=== PATIENT | male | born 1980 | race Caucasian/White ===

== ENCOUNTER 2016-09-13 20:13 | Inpatient (IN) | payer BC ==
[~2016-09-13] VITALS: Ht 190.5 cm; Wt 86.2 kg
[2016-09-13] MEDS ORDERED: HIV MEDS (20:37)
[2016-09-13] MEDS ORDERED: SERTRALINE HCL100 MG PO (20:37)
[2016-09-13 20:47] VITALS: BP 104/62
--- NOTE | 2016-09-13 20:56 | Emergency Room Report ---
History of Present Illness General Chief Complaint: Generalized Weakness Source: Patient (Henry Handley) Present Illness HPI Patient is a 35-year-old male who presented after increased generalized weakness as well as low blood pressure. Patient had prior history of similar symptoms while in diarrhea. Patient was having multiple episodes of watery diarrhea. Patient states he is also coming down from crystal meth use. Patient states that he had not been eating for several days. Patient hasn't had fever. (Henry Handley) Allergies: Coded Allergies: AMOXICILLIN (Verified Allergy, Unknown, 09/13/16) CEFTRIAXONE (Verified Allergy, Unknown, 09/13/16) PENICILLINS (Verified Allergy, Unknown, 09/13/16) Patient History Reviewed Nursing Documentation: PMH: Agreed, PSxH: Agreed (Henry Handley) Nursing Documentation-PMH History Of Psychiatric Problem: Yes - ANXIETY,DEPRESSION (Henry Handley) Review of Systems All Other Systems: negative except mentioned in HPI (Henry Handley) Physical Exam Vital Signs Date Time Temp Pulse Resp B/P Pulse Ox O2 Delivery O2 Flow Rate FiO2 09/13/16 20:30 98.2 94 18 87/60 100 Room Air Sp02 EP Interpretation: reviewed, normal General Appearance: normal inspection, well appearing, alert, mild distress Head: atraumatic ENT: normal ENT inspection, hearing grossly normal, normal voice, dry mucus membranes Neck: normal inspection, full range of motion, supple, no bony tend Respiratory: normal inspection, lungs clear, normal breath sounds, no respiratory distress, no retraction, no wheezing Cardiovascular #1: regular rate, rhythm, no edema Gastrointestinal: normal inspection, non tender, soft, no guarding, no hernia Genitourinary: no CVA tenderness Musculoskeletal: normal inspection, back normal, normal range of motion Neurologic: normal inspection, alert, oriented x3, responsive, 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 Differential diagnosis included was not limited to anemia, urinary tract infection, electrolyte abnormality, hypothyroidism, myocardial infarction, myasthenia gravis, dehydration, among others. Because of complexity of patient's case laboratory testing and imaging studies were ordered. The patient was noted to have a low blood pressure. As the likely due to dehydration from recent diarrheal episodes. The laboratory testing was ordered is currently pending the patient started IV fluids as well as IV antiemetics. CT of the abdomen pelvis is ordered. Patient noted have some elevation of his BUN/creatinine consistent with dehydration.The patient was also noted to have elevated white blood count which may be due to the patient recent methamphetamine use. Patient was noted to have some prior history of HIV Medication Laboratory Tests Test 09/13/16 21:20 White Blood Count 18.9 K/UL (4.8-10.8) H Red Blood Count 5.55 M/UL (4.70-6.10) Hemoglobin 17.5 G/DL (14.2-18.0) Hematocrit 50.5 % (42.0-52.0) Mean Corpuscular Volume 91 FL (80-99) Mean Corpuscular Hemoglobin 31.5 PG (27.0-31.0) H Mean Corpuscular Hemoglobin Concent 34.6 G/DL (32.0-36.0) Red Cell Distribution Width 10.5 % (11.6-14.8) L Platelet Count 150 K/UL (150-450) Mean Platelet Volume 8.1 FL (6.5-10.1) Neutrophils (%) (Auto) 69.8 % (45.0-75.0) Lymphocytes (%) (Auto) 17.2 % (20.0-45.0) L Monocytes (%) (Auto) 12.2 % (1.0-10.0) H Eosinophils (%) (Auto) 0.0 % (0.0-3.0) Basophils (%) (Auto) 0.7 % (0.0-2.0) Sodium Level 129 mEQ/L (135-145) L Potassium Level 3.7 mEQ/L (3.4-4.9) Chloride Level 86 mEQ/L (98-107) L Carbon Dioxide Level 20 mEQ/L (20-30) Anion Gap 23 (5-15) H Blood Urea Nitrogen 20 mg/dL (7-23) Creatinine 1.7 mg/dL (0.7-1.2) H Estimate Glomerular Filtration Rate 46.6 mL/min (>60) Glucose Level 122 mg/dL (74-106) H Calcium Level 9.0 mg/dL (8.6-10.2) Total Bilirubin 1.5 mg/dL (0.0-1.2) H Direct Bilirubin Pending Aspartate Amino Transferase (AST) 20 U/L (5-40) Alanine Aminotransferase (ALT) 12 U/L (3-41) Alkaline Phosphatase 54 U/L (40-129) Troponin I < 0.30 ng/mL (<=0.30) Total Protein 7.8 g/dL (6.6-8.7) Albumin 4.5 g/dL (3.5-5.2) Globulin 3.3 g/dL Albumin/Globulin Ratio 1.3 (1.0-2.7) Lipase 24 U/L (< 60) (Henry Handley) ER Course Patient signed out to me. He has a history HIV. Compliant with his medication. He said that for the last 3 days he had profuse diarrhea. [place] weak and had near syncopal episode today. Initially was hypotensive. Now normotensive after IV fluid. He felt better now. Antibiotics given. CT scan showed colitis. Lab Results Impression labs with leukocytosis (GLENDA SALINAS M.D.) CT/MRI/US Diagnostic Results CT/MRI/US Diagnostic Results : Imaging Test Ordered: CT abdomen and pelvis Impression read by radiologist. Colitis. CT head: read by radiologist. Negative. (GLENDA SALINAS M.D.) Last Vital Signs Date Time Temp Pulse Resp B/P Pulse Ox O2 Delivery O2 Flow Rate FiO2 09/13/16 20:30 98.2 94 18 87/60 100 Room Air Status: unchanged (Henry Handley) Status: improved (GLENDA SALINAS M.D.) Disposition: ADMITTED INPATIENT Condition: Serious Henry Handlye Sep 13, 2016 20:56 GLENDA SALINAS M.D. Sep 14, 2016 00:05
[2016-09-13 21:30] LABS: MEAN CORPUSCULAR HEMOGLOBIN 31.5 PG (27.0-31.0); MEAN CORPUSCULAR HGB CONC 34.6 G/DL (32.0-36.0); MEAN CORPUSCULAR VOLUME 91 FL (80-99); MEAN PLATELET VOLUME 8.1 FL (6.5-10.1); PLATELET COUNT 150 K/UL (150-450); RED BLOOD COUNT 5.55 M/UL (4.70-6.10); RED CELL DISTRIBUTION WIDTH 10.5 % (11.6-14.8); WHITE BLOOD COUNT 18.9 K/UL (4.8-10.8)
[2016-09-13 21:37] LABS: BASOPHILS % (AUTO) 0.7 % (0.0-2.0); LYMPHOCYTES % (AUTO) 17.2 % (20.0-45.0); MONOCYTES % (AUTO) 12.2 % (1.0-10.0); NEUTROPHILS % (AUTO) 69.8 % (45.0-75.0)
[2016-09-13 21:46] LABS: TROPONIN I < 0.30 ng/mL (<=0.30)
[2016-09-13 21:47] LABS: ALBUMIN/GLOBULIN RATIO 1.3 (1.0-2.7); CREATININE 1.7 mg/dL (0.7-1.2); GLOMERULAR FILTRATION RATE 46.6 mL/min (>60); POTASSIUM 3.7 mEQ/L (3.4-4.9); TOTAL PROTEIN 7.8 g/dL (6.6-8.7)
[2016-09-13] MEDS ORDERED: Levofloxacin 500mg tab ORAL ONE (22:00)
[2016-09-13 22:05] VITALS: BP 94/55
[2016-09-13 22:10] LABS: BILIRUBIN,DIRECT 0.3 mg/dL (0.1-0.3)
[2016-09-13 22:58] VITALS: BP 98/53
[2016-09-13 23:20] VITALS: BP 99/54
[2016-09-13 23:36] LABS: APPEARANCE,URINE CLEAR; KETONES,URINE NEGATIVE (NEGATIVE); LEUKOCYTE ESTERASE ,URINE NEGATIVE (NEGATIVE); NITRITE,URINE NEGATIVE (NEGATIVE); PH,URINE 6 (4.5-8.0); UROBILINOGEN,URINE NORMAL MG/DL (0.0-1.0)
[2016-09-13 23:38] LABS: PROTEIN,URINE NEGATIVE (NEGATIVE)
[2016-09-14] VITALS (7 sets, daily range): BP systolic 92–112; BP diastolic 53–65
[2016-09-14] MEDS ORDERED: metroNIDAZOLE 500mg 100 ML IVPB ONE
[2016-09-14] MEDS ORDERED: Ciprofloxacin 500mg tab ORAL ONE
[2016-09-14] MEDS: Ciprofloxacin 500mg tab ORAL SCH ×2 (08:48→17:14)
[2016-09-14] MEDS: metroNIDAZOLE 500mg tab ORAL SCH ×3 (08:49→17:14)
[2016-09-14] MEDS: Sertraline 100mg tab ORAL SCH (08:49)
--- NOTE | 2016-09-14 10:05 | History & Physical ---
History and Physical History & Physicial HP dictated # [id number] GIOVANY MEHTA Sep 14, 2016 10:05
[2016-09-14 10:09] LABS: BASOPHILS % (AUTO) 0.5 % (0.0-2.0); EOSINOPHILS % (AUTO) 0.2 % (0.0-3.0); LYMPHOCYTES % (AUTO) 15.7 % (20.0-45.0); MEAN CORPUSCULAR HEMOGLOBIN 32.2 PG (27.0-31.0); MEAN CORPUSCULAR HGB CONC 35.5 G/DL (32.0-36.0); MEAN CORPUSCULAR VOLUME 91 FL (80-99); MEAN PLATELET VOLUME 8.2 FL (6.5-10.1); MONOCYTES % (AUTO) 12.5 % (1.0-10.0); NEUTROPHILS % (AUTO) 71.1 % (45.0-75.0); PLATELET COUNT 136 K/UL (150-450); RED BLOOD COUNT 4.77 M/UL (4.70-6.10); RED CELL DISTRIBUTION WIDTH 10.8 % (11.6-14.8); WHITE BLOOD COUNT 11.5 K/UL (4.8-10.8)
--- NOTE | 2016-09-14 10:15 | Diagnostic Imaging Report ---
Indication: PAIN Technique: Spiral acquisitions obtained through the abdomen and pelvis. No oral contrast utilized, per emergency room physician request No IV contrast utilized, due to renal sufficiency.. Multiplanar reconstructions were generated. Total dose length product 916 mGycm. CTDIvol(s) 16 mGy Comparison: None Findings: The appendix is normal. There is mild wall thickening of the descending and sigmoid colon and of the rectum. There is minimal infiltration of the pericolonic fat surrounding the descending colon. No small bowel distention. No free or loculated intraperitoneal air or fluid. Distal esophagus, stomach, duodenum are unremarkable. Lack of IV contrast assessment of solid organs. The gallbladder, bile ducts, liver, pancreas are all unremarkable. The spleen is mildly enlarged, measuring 14 cm long axis dimension. The right kidney demonstrates a 4.8 cm lower pole cyst. The left kidney demonstrates 1 cm interpolar region cyst. No renal or ureteral calculi, hydronephrosis, or hydroureter. There are a few prominent but not frankly enlarged retroperitoneal lymph nodes. No pelvic mass or adenopathy. The included lung bases are except for a small calcified granuloma at the left lung base. The bones are unremarkable. Impression: Wall thickening of the splenic flexure, descending and sigmoid colon, and of the rectum, consistent with colitis. There is also minimal infiltration of the pericolonic fat. Mild splenomegaly Bilateral renal cysts Granulomatous calcification of the left lung base This agrees with the preliminary interpretation provided overnight by [facility] teleradiology service. The CT scanner at [facility] is accredited by the [employer] and the scans are performed using protocols designed to limit radiation exposure to as low as reasonably achievable to attain images of sufficient resolution adequate for diagnostic evaluation.
[2016-09-14 10:23] LABS: ANION GAP 15 (5-15); CALCIUM 8.5 mg/dL (8.6-10.2); CARBON DIOXIDE 20 mEQ/L (20-30); CHLORIDE 104 mEQ/L (98-107); CREATININE 1.1 mg/dL (0.7-1.2); GLOMERULAR FILTRATION RATE > 60 mL/min (>60); HEMOLYSIS 16; POTASSIUM 3.9 mEQ/L (3.4-4.9); SODIUM 139 mEQ/L (135-145)
--- NOTE | 2016-09-14 16:58 | History and Physical Report ---
DATE OF ADMISSION: 09/13/2016 CHIEF COMPLAINT: Diarrhea. HISTORY OF PRESENT ILLNESS: This is a 35-year-old, pleasant white male, who used some crystal meth on Sunday and then Sunday morning four days ago. About 10 hours later, he started having diarrhea, which was watery. The next day on Sunday he went to [facility] emergency room and was hydrated and was released. He eventually went to a detox center for rehabilitation; however, they told him he is too sick to stay there, so they sent him to emergency room at [place]. He was admitted yesterday with diagnosis of gastroenteritis. He has also acute renal failure with creatinine of 1.7. He is hyponatremic with serum sodium of 129. Also, there was leukocytosis at 18,900. The patient has some nausea. He could hardly eat anything in the past few days, although he does not have much abdominal pain and he does not have much vomiting. PAST MEDICAL HISTORY: History of HIV, which the patient thinks that he got through sexual contact. History of anxiety and depression. MEDICATIONS: The patient takes HIV medication that he does not know the name of. ALLERGIES: Reported to penicillins, ceftriaxone, and amoxicillin. SOCIAL HISTORY: The patient states that he has used crystal methamphetamine only 11 times in his life. He denies tobacco abuse. He works in the healthcare industry as a director. He lives with a roommate. REVIEW OF SYSTEMS: As above. PHYSICAL EXAMINATION: GENERAL: The patient is a thin male, in no acute distress. He does feel somewhat nauseated. VITAL SIGNS: Blood pressure 94/53, pulse 68, temperature 97.9, and respiratory rate is 17. HEENT: [place] conjunctivae. Anicteric sclerae. NECK: Supple. LUNGS: Clear to auscultation. HEART: S1 and S2 without murmurs or rubs. ABDOMEN: Soft. Mildly diffusely tender. EXTREMITIES: No cyanosis or edema. LABORATORY FINDINGS: Chemistry panel shows serum sodium of 129, potassium 3.7, chloride 86, CO2 20, BUN is 20, creatinine 1.7, and blood sugar is 122. Albumin is 4.5. CBC shows WBC of 18.9, hematocrit is 50.5, hemoglobin is 17.5, and platelets 150,000. UA is negative. ASSESSMENT: This is a 35-year-old, white male with history of human immunodeficiency virus who was admitted with acute gastroenteritis. He has acute renal failure likely as a result of prerenal azotemia. Also, he has hyponatremia again with volume depletion. PLAN: The patient will be hydrated with IV normal saline. I started the patient on liquid diet. The patient will be on Flagyl and p.o. Cipro empirically. ID consultation will be obtained. The patient will be started on his HIV medications once we get the names. Reji Dai M.D. DR: BRADEN JOB#: [id number] CC:
[2016-09-15 00:15] VITALS: BP 109/62
--- NOTE | 2016-09-15 03:08 | Consultation ---
DATE OF CONSULTATION: 09/14/2016 ATTENDING PHYSICIAN: Reji Dai M.D. REASON FOR CONSULTATION: Diarrhea and HIV. HISTORY OF PRESENT ILLNESS: The patient is a 35-year-old white male admitted last night complaining of diarrhea, weakness, and decreasing blood pressure. The patient has leukocytosis of 18.9. dad acute renal failure. The patient has also HIV since 2015. PAST MEDICAL HISTORY: HIV since 2015. He is taking medications, the last free T4 is around 400. The patient has a history of substance abuse, methamphetamine and previously smoking but in the past couple of years he started to ingesting the medication. The symptoms started after the last use of methamphetamine. MEDICATIONS: Zofran, Ciprofloxacin , Flagyl, Zoloft, and sodium chloride. SOCIAL HISTORY: He is single, has a room mate. No sick contact. He does remember eating bad food. The patient is allergic to amoxicillin, penicillin, and ceftriaxone. REVIEW OF SYSTEMS: No fever. No chills. No coughing. No chest pain. No significant abdominal pain. diarrhea. PHYSICAL EXAMINATION: VITAL SIGNS: Temperature is 96.8, blood pressure 94/59, and pulse 84. The patient is afebrile since admission. HEAD AND NECK: [place] conjunctivae. No oral lesions. HEART: S1 and S2 regular. LUNGS: Clear. ABDOMEN: Soft and nontender. Bowel sounds are present. EXTREMITIES: No edema. LABORATORY DATA: Sodium 139, potassium 3.9, chloride 104, and bicarbonate 20. BUN 12 and creatinine 1.1 coming down from 1.7. WBC 11.5, hemoglobin 15.3, hematocrit 43.2, and platelets 136,000. UA was negative. CT scan of chest was negative. IMPRESSION: 1. Diarrhea may be infectious. The patient has HIV and has decreased immunity. has dehydration and acute renal failure that is improving. 2. He has hypertension. RECOMMENDATIONS: Continue Ciprofloxacin& Flagyl, will order stool culture. At the end of my exam, I thank Dr. Dai for involving me in the care of this patient. Jose Dai M.D. DR: DORIS JOB#: [id number] CC: TRISHA
[2016-09-15 03:56] VITALS: BP 102/58
[2016-09-15 08:00] VITALS: BP 101/60
[2016-09-15] MEDS: metroNIDAZOLE 500mg tab ORAL SCH ×3 (08:23→17:39)
[2016-09-15] MEDS: Sertraline 100mg tab ORAL SCH (08:23)
[2016-09-15] MEDS: Ciprofloxacin 500mg tab ORAL SCH ×2 (08:23→17:39)
--- NOTE | 2016-09-15 11:38 | Infectious Diseases Prog Note ---
Assessment/Plan Assessment/Plan antibiotics : levoquin, flagyl A 1. colitis 2. leucocytosis improving 3. HIV P 1. continue levoquin, flagyl 2. will follow up cultures Subjective Constitutional: Denies: chills, fever Respiratory: Denies: dry cough, shortness of breath Gastrointestinal/Abdominal: Reports: diarrhea, Denies: nausea, vomiting Musculoskeletal: Reports: pain - abdominal Allergies: Coded Allergies: AMOXICILLIN (Verified Allergy, Unknown, 09/13/16) CEFTRIAXONE (Verified Allergy, Unknown, 09/13/16) PENICILLINS (Verified Allergy, Unknown, 09/13/16) Objective Vital Signs Last 24 Hour Vital Signs Date Time Temp Pulse Resp B/P Pulse Ox O2 Delivery O2 Flow Rate FiO2 09/15/16 08:00 97.2 68 17 101/60 98 Room Air 09/15/16 07:43 58 09/15/16 04:00 61 09/15/16 03:56 98.2 55 20 102/58 94 Room Air 09/15/16 00:15 98.8 66 21 109/62 93 Room Air 09/15/16 00:00 77 09/14/16 20:00 69 09/14/16 20:00 97.0 67 19 110/64 99 Room Air 09/14/16 16:00 97.9 68 20 112/65 97 Room Air 09/14/16 16:00 74 09/14/16 12:00 84 09/14/16 12:00 96.8 69 17 94/59 99 Room Air Height (Feet): 6 Height (Inches): 3.00 Weight (Pounds): 190 Respiratory/Chest: lungs clear Cardiovascular: normal rate, regular rhythm, no gallop/murmur Abdomen: tender Extremities: no edema Microbiology Date/Time Source Procedure Growth Status 09/14/16 04:00 Stool Clostridium difficile Toxin Assay - Final Complete ROMULOANAMIKEL Sep 15, 2016 11:38
[2016-09-15 12:16] VITALS: BP 103/62
--- NOTE | 2016-09-15 15:09 | General Progress Note ---
Assessment/Plan Problem List: (1) HIV (human immunodeficiency virus infection) ICD Codes: Z21 - Asymptomatic human immunodeficiency virus [HIV] infection status SNOMED: 91113039 (2) Acute gastroenteritis ICD Codes: K52.9 - Noninfective gastroenteritis and colitis, unspecified SNOMED: 27247940 (3) Acute renal failure (ARF) ICD Codes: N17.9 - Acute kidney failure, unspecified SNOMED: 50927912 Qualifiers: Qualified Codes: N17.9 - Acute kidney failure, unspecified (4) Dehydration ICD Codes: E86.0 - Dehydration SNOMED: 36573768 Status Narrative renal function better diarrhea better Assessment/Plan abxs IVF advance diet follow labs Subjective Allergies: Coded Allergies: AMOXICILLIN (Verified Allergy, Unknown, 09/13/16) CEFTRIAXONE (Verified Allergy, Unknown, 09/13/16) PENICILLINS (Verified Allergy, Unknown, 09/13/16) Subjective feels better Objective Last 24 Hour Vital Signs Date Time Temp Pulse Resp B/P Pulse Ox O2 Delivery O2 Flow Rate FiO2 09/15/16 12:16 97.8 70 18 103/62 98 Room Air 09/15/16 11:45 72 09/15/16 08:00 97.2 68 17 101/60 98 Room Air 09/15/16 07:43 58 09/15/16 04:00 61 09/15/16 03:56 98.2 55 20 102/58 94 Room Air 09/15/16 00:15 98.8 66 21 109/62 93 Room Air 09/15/16 00:00 77 09/14/16 20:00 69 09/14/16 20:00 97.0 67 19 110/64 99 Room Air 09/14/16 16:00 97.9 68 20 112/65 97 Room Air 09/14/16 16:00 74 Intake and Output 09/14/16 09/15/16 19:00 07:00 Intake Total 2560 ml 2200 ml Balance 2560 ml 2200 ml Intake Oral 760 ml 550 ml IV Total 1800 ml 1650 ml # Voids 4 6 # Bowel Movements 2 Height (Feet): 6 Height (Inches): 3.00 Weight (Pounds): 190 Respiratory/Chest: lungs clear Abdomen: soft Edema: no edema noted GIOVANY Salmon Sep 15, 2016 15:09
[2016-09-15 16:00] VITALS: BP 107/71
--- NOTE | 2016-09-15 18:34 | Cardiology Report ---
APPROVED REPORT EKG Measurement Heart [id number] OK 126P60 [id number] Normal sinus rhythm Lateral infarct, age undetermined Abnormal ECG
[2016-09-15 20:00] VITALS: BP_SYST 112; BP_SYST 127; BP_DIAS 71; BP_DIAS 79
[2016-09-16] VITALS: BP 104/65
[2016-09-16 04:00] VITALS: BP 109/49
[2016-09-16 08:00] VITALS: BP 103/57
[2016-09-16] MEDS: metroNIDAZOLE 500mg tab ORAL SCH ×3 (09:05→17:35)
[2016-09-16] MEDS: Sertraline 100mg tab ORAL SCH (09:05)
[2016-09-16] MEDS: Ciprofloxacin 500mg tab ORAL SCH ×2 (09:05→17:35)
[2016-09-16] MEDS: ABACAVIR ORAL SCH (11:03)
[2016-09-16] MEDS: DOLUTEGRAVIR ORAL SCH (11:03)
[2016-09-16] MEDS: LAMIVUDINE ORAL SCH (11:03)
[2016-09-16] MEDS: [UNRECOGNIZED DRUG - MIXTURE] ORAL SCH (11:03)
--- NOTE | 2016-09-16 11:50 | General Progress Note ---
Assessment/Plan Problem List: (1) HIV (human immunodeficiency virus infection) ICD Codes: Z21 - Asymptomatic human immunodeficiency virus [HIV] infection status SNOMED: 77263770 (2) Acute gastroenteritis ICD Codes: K52.9 - Noninfective gastroenteritis and colitis, unspecified SNOMED: 73557158 (3) Acute renal failure (ARF) ICD Codes: N17.9 - Acute kidney failure, unspecified SNOMED: 82640672 Qualifiers: Qualified Codes: N17.9 - Acute kidney failure, unspecified (4) Dehydration ICD Codes: E86.0 - Dehydration SNOMED: 99023869 Assessment/Plan abxs IVF keep on full liquids follow labs Subjective Allergies: Coded Allergies: AMOXICILLIN (Verified Allergy, Unknown, 09/13/16) CEFTRIAXONE (Verified Allergy, Unknown, 09/13/16) PENICILLINS (Verified Allergy, Unknown, 09/13/16) Subjective still with liquid stools Objective Last 24 Hour Vital Signs Date Time Temp Pulse Resp B/P Pulse Ox O2 Delivery O2 Flow Rate FiO2 09/16/16 08:00 55 09/16/16 08:00 97.7 57 20 103/57 97 Room Air 09/16/16 04:00 97.9 56 20 109/49 98 09/16/16 04:00 55 09/16/16 00:00 98.1 56 20 104/65 99 Room Air 09/16/16 00:00 56 09/15/16 20:00 59 09/15/16 20:00 98.1 68 20 112/71 98 Room Air 09/15/16 16:00 98.4 63 20 107/71 97 Room Air 09/15/16 16:00 61 09/15/16 12:16 97.8 70 18 103/62 98 Room Air Intake and Output 09/15/16 09/16/16 19:00 07:00 Intake Total 2833 ml 2200 ml Output Total 740 ml Balance 2833 ml 1460 ml Intake Oral 1000 ml 600 ml IV Total 1833 ml 1600 ml Output Urine Total 740 ml # Voids 3 3 # Bowel Movements 1 Height (Feet): 6 Height (Inches): 3.00 Weight (Pounds): 190 Cardiovascular: normal rate Respiratory/Chest: lungs clear Edema: no edema noted GIOVANY Salmon Sep 16, 2016 11:50
[2016-09-16 12:00] VITALS: BP 105/63
[2016-09-16 16:00] VITALS: BP 108/76
[2016-09-16 20:00] VITALS: BP 111/61
[2016-09-17] VITALS: BP 112/63
[2016-09-17 04:00] VITALS: BP 102/69
--- NOTE | 2016-09-17 07:59 | Infectious Diseases Prog Note ---
Assessment/Plan Assessment/Plan A 1. colitis 2. leucocytosis improving 3. HIV 4. Acute renal failure, improved P 1. continue Levaquin, Flagyl 2. will follow up cultures Subjective ROS Limited/Unobtainable: No Constitutional: Reports: no symptoms Respiratory: Reports: no symptoms Cardiovascular: Reports: no symptoms Gastrointestinal/Abdominal: Reports: diarrhea, other - more formed, dark stool Genitourinary: Reports: no symptoms Neurologic: Reports: no symptoms Allergies: Coded Allergies: AMOXICILLIN (Verified Allergy, Unknown, 09/13/16) CEFTRIAXONE (Verified Allergy, Unknown, 09/13/16) PENICILLINS (Verified Allergy, Unknown, 09/13/16) Objective Vital Signs Last 24 Hour Vital Signs Date Time Temp Pulse Resp B/P Pulse Ox O2 Delivery O2 Flow Rate FiO2 09/17/16 04:00 60 09/17/16 04:00 98.2 69 16 102/69 97 Room Air 09/17/16 00:00 97.7 75 16 112/63 97 Room Air 09/17/16 00:00 58 09/16/16 20:00 98.8 64 18 111/61 98 Room Air 09/16/16 20:00 65 09/16/16 16:00 98.1 64 20 108/76 96 Room Air 09/16/16 16:00 59 09/16/16 12:00 98.1 60 20 105/63 97 Room Air 09/16/16 12:00 62 09/16/16 08:00 55 09/16/16 08:00 97.7 57 20 103/57 97 Room Air Height (Feet): 6 Height (Inches): 3.00 Weight (Pounds): 190 General Appearance: no acute distress HEENT: mucous membranes moist Respiratory/Chest: lungs clear Cardiovascular: normal rate Abdomen: soft, non tender Extremities: no edema Neurologic/Psychiatric: alert, oriented x 3, responsive Laboratory Tests Test 09/17/16 07:25 White Blood Count Pending Red Blood Count Pending Hemoglobin Pending Hematocrit Pending Mean Corpuscular Volume Pending Mean Corpuscular Hemoglobin Pending Mean Corpuscular Hemoglobin Concent Pending Red Cell Distribution Width Pending Platelet Count Pending Mean Platelet Volume Pending Neutrophils (%) (Auto) Pending Lymphocytes (%) (Auto) Pending Monocytes (%) (Auto) Pending Eosinophils (%) (Auto) Pending Basophils (%) (Auto) Pending Sodium Level Pending Potassium Level Pending Chloride Level Pending Carbon Dioxide Level Pending Blood Urea Nitrogen Pending Creatinine Pending Estimat Glomerular Filtration Rate Pending Glucose Level Pending Calcium Level Pending Current Medications Medications (Trade) Dose Ordered Sig/Akiko Route PRN Reason Start Time Stop Time Status Last Admin Dose Admin Ciprofloxacin (Cipro 500mg tab) 500 mg BID ORAL 09/14/16 09:00 09/21/16 08:59 09/16/16 17:35 Dextrose (Dextrose 50%) STAT PRN IV Hypoglycemia 09/14/16 02:45 10/14/16 02:44 Metronidazole (Flagyl) 500 mg TID ORAL 09/14/16 09:00 09/21/16 08:59 09/16/16 17:35 Ondansetron HCl (Zofran) 4 mg Q4HR PRN IVP Nausea & Vomiting 09/14/16 09:45 10/14/16 09:44 09/14/16 10:05 Patient Own Medication (Patient's Own Med) 1 ea DAILY ORAL 09/16/16 11:00 10/16/16 10:59 09/16/16 11:03 Patient Own Medication (Patient's Own Med) 1 ea DAILY ORAL 09/16/16 11:00 10/16/16 10:59 09/16/16 11:03 Sertraline HCl (Zoloft) 100 mg DAILY ORAL 09/14/16 09:00 10/14/16 08:59 09/16/16 09:05 Sodium Chloride (Sodium Chloride 1000ml bag) 1,000 ml @ 150 mls/hr Q6H40M IVLG 09/14/16 03:35 10/14/16 03:34 09/17/16 05:22 VELMA MEHTA Sep 17, 2016 07:59
[2016-09-17 08:00] VITALS: BP 107/62
[2016-09-17 08:03] LABS: BASOPHILS % (AUTO) 0.7 % (0.0-2.0); EOSINOPHILS % (AUTO) 0.5 % (0.0-3.0); LYMPHOCYTES % (AUTO) 18.4 % (20.0-45.0); MEAN CORPUSCULAR HEMOGLOBIN 31.6 PG (27.0-31.0); MEAN CORPUSCULAR HGB CONC 34.3 G/DL (32.0-36.0); MEAN CORPUSCULAR VOLUME 92 FL (80-99); MEAN PLATELET VOLUME 9.2 FL (6.5-10.1); MONOCYTES % (AUTO) 11.3 % (1.0-10.0); NEUTROPHILS % (AUTO) 69.1 % (45.0-75.0); PLATELET COUNT 139 K/UL (150-450); WHITE BLOOD COUNT 6.3 K/UL (4.8-10.8)
[2016-09-17 08:24] LABS: ANION GAP 14 (5-15); CALCIUM 8.3 mg/dL (8.6-10.2); CARBON DIOXIDE 27 mEQ/L (20-30); CHLORIDE 102 mEQ/L (98-107); GLOMERULAR FILTRATION RATE > 60 mL/min (>60); HEMOLYSIS 6; POTASSIUM 3.5 mEQ/L (3.4-4.9); SODIUM 143 mEQ/L (135-145)
[2016-09-17] MEDS: [UNRECOGNIZED DRUG - MIXTURE] ORAL SCH ×2 (09:00→11:37)
[2016-09-17] MEDS: ABACAVIR ORAL SCH ×2 (09:00→11:38)
[2016-09-17] MEDS: DOLUTEGRAVIR ORAL SCH ×2 (09:00→11:38)
[2016-09-17] MEDS: LAMIVUDINE ORAL SCH ×2 (09:00→11:38)
[2016-09-17] MEDS: Ciprofloxacin 500mg tab ORAL SCH ×2 (09:06→17:55)
[2016-09-17] MEDS: metroNIDAZOLE 500mg tab ORAL SCH ×3 (09:06→17:55)
[2016-09-17] MEDS: Sertraline 100mg tab ORAL SCH (09:06)
[2016-09-17 12:00] VITALS: BP 105/60
--- NOTE | 2016-09-17 12:33 | General Progress Note ---
Assessment/Plan Problem List: (1) HIV (human immunodeficiency virus infection) ICD Codes: Z21 - Asymptomatic human immunodeficiency virus [HIV] infection status SNOMED: 83848333 (2) Acute gastroenteritis ICD Codes: K52.9 - Noninfective gastroenteritis and colitis, unspecified SNOMED: 71832458 (3) Acute renal failure (ARF) ICD Codes: N17.9 - Acute kidney failure, unspecified SNOMED: 21306996 Qualifiers: Qualified Codes: N17.9 - Acute kidney failure, unspecified (4) Dehydration ICD Codes: E86.0 - Dehydration SNOMED: 28342209 Assessment/Plan abxs DC IVF Advance diet ambulate Subjective Allergies: Coded Allergies: AMOXICILLIN (Verified Allergy, Unknown, 09/13/16) CEFTRIAXONE (Verified Allergy, Unknown, 09/13/16) PENICILLINS (Verified Allergy, Unknown, 09/13/16) Subjective No diarrhea today Objective Last 24 Hour Vital Signs Date Time Temp Pulse Resp B/P Pulse Ox O2 Delivery O2 Flow Rate FiO2 09/17/16 04:00 60 09/17/16 04:00 98.2 69 16 102/69 97 Room Air 09/17/16 00:00 97.7 75 16 112/63 97 Room Air 09/17/16 00:00 58 09/16/16 20:00 98.8 64 18 111/61 98 Room Air 09/16/16 20:00 65 09/16/16 16:00 98.1 64 20 108/76 96 Room Air 09/16/16 16:00 59 Intake and Output 09/16/16 09/17/16 19:00 07:00 Intake Total 1715 ml 2003 ml Output Total 800 ml Balance 1715 ml 1203 ml Intake Oral 300 ml IV Total 1715 ml 1703 ml Output Urine Total 800 ml # Voids 1 Laboratory Tests 09/17/16 07:25: White Blood Count 6.3, Red Blood Count 3.70L, Hemoglobin 11.7L, Hematocrit 34.1L , Mean Corpuscular Volume 92, Mean Corpuscular Hemoglobin 31.6H, Mean Corpuscular Hemoglobin Concent 34.3, Red Cell Distribution Width 11.0L, Platelet Count 139L, Mean Platelet Volume 9.2, Neutrophils (%) (Auto) 69.1, Lymphocytes (%) (Auto) 18.4L, Monocytes (%) (Auto) 11.3H, Eosinophils (%) (Auto ) 0.5, Basophils (%) (Auto) 0.7, Sodium Level 143, Potassium Level 3.5, Chloride Level 102, Carbon Dioxide Level 27, Anion Gap 14, Blood Urea Nitrogen 3L, Creatinine 1.0, Estimat Glomerular Filtration Rate > 60, Glucose Level 97, Calcium Level 8.3L Height (Feet): 6 Height (Inches): 3.00 Weight (Pounds): 190 Cardiovascular: normal rate Respiratory/Chest: lungs clear Abdomen: soft GIOVANY MEHTA Sep 17, 2016 12:33
[2016-09-17 16:00] VITALS: BP 105/68
[2016-09-17 20:00] VITALS: BP 105/65
[2016-09-18] VITALS: BP 104/69
[2016-09-18 08:00] VITALS: BP 107/59
[2016-09-18] MEDS: metroNIDAZOLE 500mg tab ORAL SCH ×2 (08:48→12:06)
[2016-09-18] MEDS: Ciprofloxacin 500mg tab ORAL SCH (08:48)
[2016-09-18] MEDS: [UNRECOGNIZED DRUG - MIXTURE] ORAL SCH (08:48)
[2016-09-18] MEDS: Sertraline 100mg tab ORAL SCH (08:48)
[2016-09-18] MEDS: ABACAVIR ORAL SCH (08:49)
[2016-09-18] MEDS: LAMIVUDINE ORAL SCH (08:49)
[2016-09-18] MEDS: DOLUTEGRAVIR ORAL SCH (08:49)
--- NOTE | 2016-09-18 09:57 | Consultation ---
Consult Note Assessment/Plan Dc dictated # [id number] GIOVANY MEHTA Sep 18, 2016 09:57
[2016-09-18 12:00] VITALS: BP 111/66
--- NOTE | 2016-09-18 12:31 | Infectious Diseases Prog Note ---
Assessment/Plan Assessment/Plan A 1. colitis 2. leucocytosis improving 3. HIV 4. Acute renal failure, improved P 1. agree with discharge Subjective ROS Limited/Unobtainable: No Constitutional: Reports: no symptoms Respiratory: Reports: no symptoms Gastrointestinal/Abdominal: Reports: diarrhea, other - more formed stool Genitourinary: Reports: no symptoms Musculoskeletal: Reports: no symptoms Allergies: Coded Allergies: AMOXICILLIN (Verified Allergy, Unknown, 09/13/16) CEFTRIAXONE (Verified Allergy, Unknown, 09/13/16) PENICILLINS (Verified Allergy, Unknown, 09/13/16) Objective Vital Signs Last 24 Hour Vital Signs Date Time Temp Pulse Resp B/P Pulse Ox O2 Delivery O2 Flow Rate FiO2 09/18/16 12:00 98.2 71 22 111/66 95 Room Air 09/18/16 08:00 98.1 74 21 107/59 98 Room Air 09/18/16 07:35 70 09/18/16 04:00 54 09/18/16 00:00 61 09/18/16 00:00 98.2 61 18 104/69 96 Room Air 09/17/16 20:00 62 09/17/16 20:00 98.4 62 18 105/65 96 Room Air 09/17/16 16:00 98.1 63 20 105/68 96 Room Air 09/17/16 16:00 71 Height (Feet): 6 Height (Inches): 3.00 Weight (Pounds): 190 General Appearance: no acute distress HEENT: mucous membranes moist Respiratory/Chest: lungs clear Cardiovascular: normal rate Abdomen: soft, non tender Extremities: no edema Neurologic/Psychiatric: alert, oriented x 3, responsive Current Medications Medications (Trade) Dose Ordered Sig/Akiko Route PRN Reason Start Time Stop Time Status Last Admin Dose Admin Ciprofloxacin (Cipro 500mg tab) 500 mg BID ORAL 09/14/16 09:00 09/21/16 08:59 09/18/16 08:48 Dextrose (Dextrose 50%) STAT PRN IV Hypoglycemia 09/14/16 02:45 10/14/16 02:44 Metronidazole (Flagyl) 500 mg TID ORAL 09/14/16 09:00 09/21/16 08:59 09/18/16 12:06 Ondansetron HCl (Zofran) 4 mg Q4HR PRN IVP Nausea & Vomiting 09/14/16 09:45 4/29/17 09:44 09/14/16 10:05 Patient Own Medication (Patient's Own Med) 1 ea DAILY ORAL 09/16/16 11:00 10/16/16 10:59 09/18/16 08:48 Patient Own Medication (Patient's Own Med) 1 ea DAILY ORAL 09/16/16 11:00 10/16/16 10:59 09/18/16 08:49 Pneumococcal Polyvalent Vaccine (Pneumovax) 0.5 ml ONCE ONCE IM 09/18/16 13:00 09/18/16 13:01 09/18/16 12:07 Sertraline HCl (Zoloft) 100 mg DAILY ORAL 09/14/16 09:00 10/14/16 08:59 09/18/16 08:48 VELMA MEHTA Sep 18, 2016 12:31
[2016-09-18] MEDS ORDERED: Pneumococcal Vaccine 25mcg/0.5ml IM ONE (13:00)
--- NOTE | 2016-09-19 00:18 | Discharge Summary ---
DATE OF ADMISSION: 09/13/2016 DATE OF DISCHARGE: 09/18/2016 CHIEF COMPLAINT: Diarrhea. HISTORY OF PRESENT ILLNESS: This is a 35-year-old white male, who was admitted with watery diarrhea. He has also hyponatremia with a serum sodium 129. He was dehydrated and had acute renal failure. His serum creatinine was 1.7. He has had also leukocytosis at 18,900. HOSPITAL COURSE: The patient was hydrated with IV fluids. He was started empirically on Cipro and Flagyl for a diagnosis of acute gastroenteritis. His serum creatinine improved as well as serum sodium. At the time of discharge, serum sodium was 143. His serum creatinine had decreased from 1.7 to 1.0. Also, his leukocytosis improved from 15158 to 6,300 as of 09/17/2016. The patient still has some residual diarrhea although his frequency of his stools was much less. Also, he started to have formed stools. He was feeling well. He initially he was on clear liquid diet, which was then switched to full liquids and eventually to a regular diet. The patient was discharged in stable condition. DISCHARGE DIAGNOSES: 1. Acute gastroenteritis. 2. Acute renal failure. 3. Dehydration. 4. History of human immunodeficiency virus. DISCHARGE MEDICATIONS: Please refer to discharge medication list. DIET: Regular . Reji Dai M.D. DR: Urvashi JOB#: [id number] CC: [email or web address]
--- NOTE | 2016-09-20 12:03 | Diagnostic Imaging Report ---
Indication: Dizziness, headache Technique: Continuous helical CT scanning of the head was performed without intravenous contrast material. Axial and coronal 5 mm sections were generated. Radiation dose was minimized using automated exposure control Dose: Total Dose Length Product - DLP [address] Dose Index - CTDIvol(s) 70.38 mGy. Comparison: None Findings: The ventricular system is normal in size and configuration. There is no shift of midline structures. No abnormal extra-axial fluid collections are noted. There is no evidence of intracerebral bleeding. No other abnormal high or low density areas are noted within the brain. Impression: Normal CT scan of the head without contrast material. This agrees with the preliminary interpretation provided overnight by [facility]erad[facility] service. The CT scanner at [facility] is accredited by the [employer] and the scans are performed using protocols designed to limit radiation exposure to as low as reasonably achievable to attain images of sufficient resolution adequate for diagnostic evaluation.
== END 2016-09-18 13:10 | disposition home or self-care (01) | DRG 977 ==
LOC: EMR 22:03 → 2E 22:11 → EDBEDREQ 22:42 → EDBEDREQSVC 22:42 → EDBEDREQ 22:51 → 2E 09-14 17:12
DX: K52.9 Noninfective gastroenteritis and colitis, unspecified (principal); B20 Human immunodeficiency virus [HIV] disease; N17.9 Acute kidney failure, unspecified; E87.1 Hypo-osmolality and hyponatremia; E86.0 Dehydration; Z88.1 Allergy status to other antibiotic agents; Z88.8 Allergy status to other drugs, medicaments and biological substances; F15.10 Other stimulant abuse, uncomplicated; I10 Essential (primary) hypertension
CPT/HCPCS: 36415; 70450; 74176; 80048; 80053; 80300; 81003; 82248; 83690; 84484; 85025; 87045; 87081; 87493; 90732; 93005; J2405